=== PATIENT | female | born 1985 | race Two or more races ===

== ENCOUNTER 2021-06-05 06:59 | Emergency (ER) | payer OTHER, MEDICAID ==
[~2021-06-05] VITALS: Ht 154.9 cm; Wt 88.9 kg
[2021-06-05] MEDS ORDERED: LORazepam 2MG/ML-1ML VIAL IV ONE (08:15)
[2021-06-05] MEDS ORDERED: SODIUM CHLORIDE 0.9% 500 ML IVB ONE (08:15)
[2021-06-05] MEDS ORDERED: MORPHINE SULF INJ 2 MG/ML SYRINGE 1ML IV ONE (08:15)
[2021-06-05] MEDS ORDERED: SODIUM CHLORIDE 0.9% 1,000 ML IV ONE (08:15)
[2021-06-05] MEDS ORDERED: ONDANSETRON HCL 4 MG/2 ML VIAL IV ONE ×2 (08:15→20:15)
[2021-06-05 09:12] LABS: Basophils # (auto) 0 10 ^3/uL (0-0.2); Basophils % (auto) 0.4 % (0.0-2.0); Eosinophils # (auto) 0 10 ^3/uL (0-0.8); Eosinophils % (auto) 0.1 % (0.0-7.0); Hematocrit 36.2 % (36.0-46.0); Hemoglobin 12.4 g/dL (12.2-16.2); Lymphocytes # (auto) 1.8 10 ^3/uL (0.4-5.4); Lymphocytes % (auto) 31.1 % (10.0-50.0); Mean Corpuscular Hemoglobin 27.9 pg (28.0-32.0); Mean Corpuscular Hgb Conc. 34.1 g/dL (32.0-36.0); Mean Corpuscular Volume 81.7 fL (80.0-100.0); Monocytes # (auto) 0.6 10 ^3/uL (0-1.3); Monocytes % (auto) 9.9 % (0.0-12.0); Neutrophils # (auto) 3.3 10 ^3/uL (1.6-8.6); Neutrophils % (auto) 58.5 % (37.0-80.0); Nucleated Red Blood Cells % 0.2 %; Red Blood Cells 4.43 10^6/uL (4.0-5.20); Red Cell Distribution Width 17.8 % (11.8-14.3); White Blood Cell 5.7 10^3/uL (4.4-10.8)
[2021-06-05 09:28] LABS: Albumin 3.2 g/dL (3.4-5.0); Calcium 9.3 mg/dL (8.5-10.1); Potassium 3.2 mmol/L (3.5-5.1)
[2021-06-05 09:30] LABS: BUN/Creatinine Ratio 3.7
[2021-06-05 09:33] LABS: Bilirubin, Total 0.7 mg/dL (0.2-1.0); Total Protein 7.7 g/dL (6.4-8.2)
[2021-06-05] MEDS ORDERED: POTASSIUM EFFERVESENT TAB 25 MEQ PO ONE (10:00)
[2021-06-05 18:52] LABS: Urine WBC None Seen /hpf (0 - 5)
[2021-06-05 19:07] LABS: Urine Bacteria NONE SEEN /hpf (None Seen); Urine Blood Negative /uL (Negative); Urine Specific Gravity 1.004 (1.001-1.035)
[2021-06-05 19:19] LABS: Alcohol, Urine < 3.0 mg/dL (0-10); Amphetamine Screen, Urine NEGATIVE (NEGATIVE); Barbiturate Scree,Urine NEGATIVE (NEGATIVE); Benzodiazephine Screen, Urine NEGATIVE (NEGATIVE); Cannabinoid Screen, Urine NEGATIVE (NEGATIVE); Cocaine Screen, Urine NEGATIVE (NEGATIVE); Opiate Scree,Urine NEGATIVE (NEGATIVE); Phencyclidine Screen, Urine NEGATIVE (NEGATIVE)
[2021-06-05] MEDS ORDERED: MORPHINE SULFATE 10 MG/ML INJ 1ML SDV IV ONE (20:15)
[2021-06-05] MEDS ORDERED: MORPHINE SULFATE 4 MG/ML SYR/VIAL ONE (20:39)
[2021-06-05] MEDS ORDERED: MORPHINE SULF INJ 2 MG/ML SYRINGE 1ML ONE (20:39)
[2021-06-06 08:28] VITALS: BP 130/87
[2021-06-06] MEDS ORDERED: HYDROmorphone HCL 2 MG/ML VL IV ONE (08:45)
== END 2021-06-06 08:34 | disposition short-term general hospital (02) ==
LOC: ER 06:59 → EDBD 06:59 → ER 18:39
DX: G89.18 Other acute postprocedural pain (principal); R53.1 Weakness; M79.10 Myalgia, unspecified site; E87.6 Hypokalemia; R20.3 Hyperesthesia; M48.061 Spinal stenosis, lumbar region without neurogenic claudication; M51.36 Other intervertebral disc degeneration, lumbar region; Z98.871 Personal history of in utero procedure while a fetus; Z88.8 Allergy status to other drugs, medicaments and biological substances; Z20.822 Contact with and (suspected) exposure to COVID-19
CPT/HCPCS: 36415; 70450; 71045; 72125; 72128; 72131; 80053; 80307; 81001; 83735; 84702; 85025; 85049; 87426; 93005; 96361; 96374; 96375; 96376; 99285; J2060; J2270; J2405; J7030; J7040

== ENCOUNTER 2021-06-09 21:26 | Emergency (ER) | payer OTHER, MEDICARE, MEDICAID ==
[~2021-06-09] VITALS: Ht 154.9 cm; Wt 86.2 kg
[2021-06-09 23:06] LABS: Basophils # (auto) 0 10 ^3/uL (0-0.2); Eosinophils # (auto) 0 10 ^3/uL (0-0.8); Eosinophils % (auto) 0.2 % (0.0-7.0); Mean Corpuscular Volume 80.5 fL (80.0-100.0); Neutrophils # (auto) 5.3 10 ^3/uL (1.6-8.6); Nucleated Red Blood Cells % 0.2 %
[2021-06-09 23:08] LABS: Basophils % (auto) 0.3 % (0.0-2.0); Hematocrit 43.6 % (36.0-46.0); Hemoglobin 14.6 g/dL (12.2-16.2); Lymphocytes # (auto) 2.2 10 ^3/uL (0.4-5.4); Lymphocytes % (auto) 26.7 % (10.0-50.0); Mean Corpuscular Hemoglobin 26.9 pg (28.0-32.0); Mean Corpuscular Hgb Conc. 33.4 g/dL (32.0-36.0); Monocytes # (auto) 0.7 10 ^3/uL (0-1.3); Monocytes % (auto) 8.4 % (0.0-12.0); Neutrophils % (auto) 64.4 % (37.0-80.0); Red Blood Cells 5.42 10^6/uL (4.0-5.20); Red Cell Distribution Width 17.6 % (11.8-14.3); White Blood Cell 8.3 10^3/uL (4.4-10.8)
[2021-06-09 23:23] LABS: Albumin 3.7 g/dL (3.4-5.0); Anion Gap 13 (5-15); BUN/Creatinine Ratio 11.3; Blood Urea Nitrogen 8 mg/dL (7-18); Calcium 9.9 mg/dL (8.5-10.1); Carbon Dioxide 17 mmol/L (21-32); Chloride 101 mmol/L (98-107); GFR African American 120 mL/min; GFR Non-African American 99 mL/min; Glucose 114 mg/dL (74-106); Potassium 4.6 mmol/L (3.5-5.1); Sodium 131 mmol/L (136-145)
[2021-06-09 23:34] LABS: Alanine Aminotransferase 52 U/L (13-56); Alkaline Phosphatase 125 U/L (45-117); Aspartate Aminotransferase 57 U/L (15-37); Total Protein 8.4 g/dL (6.4-8.2)
[2021-06-09 23:48] LABS: Urine Bacteria MANY /hpf (None Seen); Urine Blood Negative /uL (Negative); Urine Hyaline Cast FEW /lpf (0 - 2); Urine Mucus FEW (None Seen); Urine Specific Gravity 1.014 (1.001-1.035); Urine WBC 188 /hpf (0 - 5); Urine WBC Clumps PRESENT /hpf (None Seen)
[2021-06-10] MEDS ORDERED: ACETAMINOPHEN 325 MG TAB PO ONE
[2021-06-10 00:01] LABS: Amphetamine Screen, Urine NEGATIVE (NEGATIVE); Barbiturate Scree,Urine NEGATIVE (NEGATIVE); Benzodiazephine Screen, Urine POSITIVE (NEGATIVE); Cannabinoid Screen, Urine NEGATIVE (NEGATIVE); Cocaine Screen, Urine NEGATIVE (NEGATIVE); Opiate Scree,Urine NEGATIVE (NEGATIVE); Phencyclidine Screen, Urine NEGATIVE (NEGATIVE)
[2021-06-10] MEDS ORDERED: cefTRIAXone 1GM/50ML D5W 50 ML IV ONE (03:15)
[2021-06-10 04:08] VITALS: BP 124/88
== END 2021-06-10 07:10 | disposition home or self-care (01) ==
LOC: EDBD 21:26 → EDUNIT# 21:26 → ER 21:34
DX: Z74.09 Other reduced mobility (principal); F41.9 Anxiety disorder, unspecified; M54.9 Dorsalgia, unspecified; G89.29 Other chronic pain; Z88.9 Allergy status to unspecified drugs, medicaments and biological substances; Z88.8 Allergy status to other drugs, medicaments and biological substances
CPT/HCPCS: 36415; 71045; 80053; 80307; 81001; 81025; 82962; 83605; 83735; 84484; 85025; 96365; 99285; J0696

== ENCOUNTER 2021-06-12 04:00 | Emergency (ER) | payer MEDICARE, OTHER, MEDICAID ==
[~2021-06-12] VITALS: Ht 162.6 cm; Wt 90.7 kg
[2021-06-12] MEDS ORDERED: HYDROcodone-ACET 5/325MG TAB PO ONE (05:45)
[2021-06-12] MEDS ORDERED: LORazepam 0.5 MG TAB PO ONE (08:45)
[2021-06-12] MEDS ORDERED: OLANZapine 5 MG TAB PO ONE (08:45)
[2021-06-12 14:42] VITALS: BP 127/83
== END 2021-06-12 14:50 | disposition home or self-care (01) ==
LOC: EDSEX 04:00 → ER 04:00 → EDBD 04:00 → ER 14:50
DX: Z74.09 Other reduced mobility (principal); F41.9 Anxiety disorder, unspecified; Z88.9 Allergy status to unspecified drugs, medicaments and biological substances; Z88.8 Allergy status to other drugs, medicaments and biological substances; Z20.822 Contact with and (suspected) exposure to COVID-19; Y04.8XXA Assault by other bodily force, initial encounter; Y93.89 Activity, other specified; Y92.89 Other specified places as the place of occurrence of the external cause; Y99.8 Other external cause status
CPT/HCPCS: 36415; 87426